=== PATIENT | male | born 1990 | race Caucasian/White ===

== ENCOUNTER 2018-05-30 12:47 | Emergency (ER) | payer SELFPAY ==
--- NOTE | 2018-05-30 13:27 | RAD ---
THREE VIEWS LEFT FOOT: History: Evaluate for foreign body. Stepped on a toothpick. FINDINGS: AP, lateral, and oblique views of the left foot obtained and demonstrates no evidence of metallic den sity foreign body seen. The BB is noted along the soft tissues; however, objects which are wood or si milar density to soft tissues, I cannot exclude the possibility of definite radiopaque foreign bodies . No definite evidence of radiopaque foreign bodies seen otherwise. No other masses or lesions seen. No evidence of osseous lesions seen. IMPRESSION: No definite visible evidence of radiopaque foreign bodies. POS: [facility]
[2018-05-30] MEDS ORDERED: Ibuprofen 800 MG TAB ONE (13:56)
== END 2018-05-30 14:04 | disposition home or self-care (01) ==
LOC: SCSER 12:47
DX: S90.852A Superficial foreign body, left foot, initial encounter (principal); W45.8XXA Other foreign body or object entering through skin, initial encounter
CPT/HCPCS: 28190